=== PATIENT | male | born 1985 ===

== ENCOUNTER 2021-11-08 20:18 | Emergency (ER) | payer SELFPAY ==
[2021-11-08 20:46] VITALS: BP 123/69; PULSE 90; RESP 20; TEMP 37.8; O2SAT 99
[2021-11-08 22:14] VITALS: BP 114/73; PULSE 76; RESP 20; TEMP 37; O2SAT 100
--- NOTE | 2021-11-08 22:47 | PC.NURSE ---
Pt at intake desk stating I'm just going to check out. Pt ambulated out of ED with steady gait. No distress noted.
== END 2021-11-08 22:47 | disposition left against medical advice (07) ==
LOC: ANHED 22:52
DX: R50.9 Fever, unspecified (principal)
CPT/HCPCS: 99199